=== PATIENT | female | born 1940 | race Caucasian/White ===

== ENCOUNTER → 2017-06-04 | Outpatient (CLI) | payer BC | LOC: BMCIMAGING 12:26 | PROVIDERS: ATTEND Family Medicine | DX: Z12.31 Encounter for screening mammogram for malignant neoplasm of breast (principal) ==

== ENCOUNTER → 2017-12-31 | Outpatient (CLI) | payer BC | LOC: BMCIMAGING 08:21 | PROVIDERS: ATTEND Family Medicine | DX: D25.9 Leiomyoma of uterus, unspecified (principal); N85.9 Noninflammatory disorder of uterus, unspecified; Z90.722 Acquired absence of ovaries, bilateral; Z79.890 Hormone replacement therapy ==

== ENCOUNTER → 2018-01-14 | Outpatient (CLI) | payer BC | LOC: FIMAGING 11:04 | PROVIDERS: ATTEND Radiology Diagnostic Radiology | DX: I83.813 Varicose veins of bilateral lower extremities with pain (principal) ==

== ENCOUNTER → 2018-02-19 | Day surgery (SDC) | payer BC ==
[~2018-02-19] MED LIST: LIDO/EPI 1% **for epidural** 30 ML SDV ONE; SODIUM TETRADECYL SULFATE 3% 2 ML VIAL IV ONE
== END ==
LOC: FIMAGING 12:50
PROVIDERS: ATTEND Radiology Diagnostic Radiology
DX: I83.811 Varicose veins of right lower extremity with pain (principal); R22.41 Localized swelling, mass and lump, right lower limb

== ENCOUNTER → 2018-02-21 | Outpatient (CLI) | payer BC | LOC: FIMAGING 13:03 | PROVIDERS: ATTEND Radiology Diagnostic Radiology | DX: R22.42 Localized swelling, mass and lump, left lower limb (principal) ==

== ENCOUNTER → 2018-03-06 | Outpatient (CLI) | payer BC | LOC: FIMAGING 15:39 | PROVIDERS: ATTEND Radiology Diagnostic Radiology | DX: Z09 Encounter for follow-up examination after completed treatment for conditions other than malignant neoplasm (principal) ==

== ENCOUNTER → 2018-08-03 | Outpatient (CLI) | payer BC | LOC: BMCIMAGING 12:13 | PROVIDERS: ATTEND Family Medicine | DX: Z12.31 Encounter for screening mammogram for malignant neoplasm of breast (principal) ==

== ENCOUNTER → 2018-10-14 | Outpatient (CLI) | payer BC | LOC: FIMAGING 08:12 ==